=== PATIENT | female | born 1990 | race Caucasian/White ===

== ENCOUNTER 2021-08-27 21:06 | Observation (INO) | payer OTHER ==
[2021-08-27] MEDS ORDERED: Ondansetron PF 4 MG/2 ML Vial ONE (21:42)
[2021-08-27 22:13] LABS: Anion Gap 16 mmol/L (10-20); BUN (Urea Nitrogen) 12 mg/dL (7.0-18.7); Calc. Creatinine Clearance 0 mL/min (70-130); Calcium 9.1 mg/dL (7.8-10.44); Carbon Dioxide 25 mmol/L (22-29); Chloride 103 mmol/L (98-107); Glucose 112 mg/dL (70-105); Potassium 3.7 mmol/L (3.5-5.1); Sodium 140 mmol/L (136-145)
[2021-08-27] MEDS ORDERED: Ketorolac Tromethamine 30 MG/ML VIAL ONE (22:18)
[2021-08-27 22:34] LABS: #Basophils 0.1 10x3/uL (0.0-0.2); #Eosinphils 0.1 10x3/uL (0.0-0.5); #Monocytes 1.4 10x3/uL (0.0-1.1); #Neutrophils 15.4 10x3/uL (1.5-8.4); %Basophils 0.4 % (0.0-2.0); %Eosinophils 0.4 % (0.0-6.0); %Lymphocytes 6.8 % (18.0-47.0); %Monocytes 7.5 % (0.0-10.0); %Neutrophils 84.5 % (40.0-75.0); Hemoglobin 12.5 g/dL (12.0-15.5); Mean Corpuscular HGB CONC 30.9 g/dL (32.0-36.0); Mean Corpuscular Hemoglobin 26.2 pg (27.0-33.0); Mean Corpuscular Volume 84.7 fl (81.6-98.3); RBC Distribution Width 14.1 % (11.5-14.5); Red Blood Cell (RBC) Count 4.77 10x6/uL (3.90-5.03); White Blood Cell (WBC) Count 18.2 10x3/uL (3.5-10.5)
[2021-08-27 22:35] LABS: Platelet Count 127 10x3/uL (150-450)
[2021-08-27 22:41] LABS: Lipase Less than 4 U/L (8-78)
[2021-08-27] MEDS ORDERED: Labetalol HCl 100 MG/20 ML VIAL ONE (22:50)
[2021-08-28] MEDS ORDERED: Piperacillin/Tazobactam 4.5 GM VIAL ONE (00:03)
[2021-08-28 00:06] LABS: Bilirubin Neg (Negative); Blood, Urine Negative (Negative); Clarity Clear (Clear); Glucose, Urine (Dipstick) Normal (Negative); Ketone, Urine 15 mg/dL (Negative); Leukocyte Negative (Negative); Nitrite Negative (Negative); Protein, Urine (Dipstick) 30 mg/dl (Neg-Trace); Specific Gravity, Urine 1.015 (1.002-1.036); Urobilinogen Normal mg/dL (Less than 2)
[2021-08-28] MEDS ORDERED: Lactated Ringer's 1,000 ML IV SCH ×2 (01:00→11:30)
[2021-08-28] MEDS ORDERED: Ondansetron PF 4 MG/2 ML Vial IVP PRN ×2 (01:03→11:29)
[2021-08-28 01:09] LABS: Bacteria/HPF Rare-Few HPF (None Seen); RBC/HPF 0-3 HPF (0-3); WBC/HPF 0-3 HPF (0-3)
[2021-08-28 01:17] VITALS: BMI 33.5
[2021-08-28 01:28] LABS: SARS-CoV-2 NAA Rapid Test Not Detected (NotDetected)
[2021-08-28] MEDS: Ketorolac Tromethamine 30 MG/ML VIAL IVP PRN ×2 (03:24→09:31)
[2021-08-28] MEDS ORDERED: Piperacillin/Tazobactam 3.375 GM in Sodium Chloride 0.9% 100 ML IVPB SCH ×2 (04:00→12:00)
[2021-08-28] MEDS ORDERED: Promethazine HCl 25 MG/ML VIAL IM PRN (11:29)
[2021-08-28] MEDS ORDERED: hydrALAZINE 20 MG/ML VIAL SLOW IVP PRN (11:29)
[2021-08-28] MEDS ORDERED: Dextrose 5% in Water 1,000 ML IV PRN (11:29)
[2021-08-28] MEDS ORDERED: Morphine 2 MG/ML VIAL SLOW IVP PRN (11:29)
[2021-08-28] MEDS ORDERED: Dextrose 50% Abboject 50 ML SYRINGE SLOW IVP PRN (11:29)
[2021-08-28] MEDS ORDERED: PROPOFOL 20 ML ONE ×2 (12:07→13:14)
[2021-08-28] MEDS ORDERED: Fentanyl 100 MCG/2 ML VIAL ONE ×2 (12:07→13:15)
[2021-08-28] MEDS ORDERED: Dexamethasone 4 mg/ml Vial ONE (12:08)
[2021-08-28] MEDS ORDERED: Rocuronium Bromide 10 MG/ML (10ML VIAL) ONE (12:08)
[2021-08-28] MEDS ORDERED: Ketorolac Tromethamine 30 MG/ML VIAL ONE (12:08)
[2021-08-28] MEDS ORDERED: Glycopyrrolate 0.2 MG/ML 5 ML SYRINGE ONE (12:08)
[2021-08-28] MEDS ORDERED: Lidocaine 1% PF 5 ML VIAL ONE (12:08)
[2021-08-28] MEDS ORDERED: Ondansetron PF 4 MG/2 ML Vial ONE (12:08)
[2021-08-28] MEDS ORDERED: HYDROmorphone 0.5 MG/0.5 ML SYRINGE ONE (12:12)
[2021-08-28] MEDS ORDERED: Bupivacaine PF 0.5% 30 ML VIAL ONE (12:25)
[2021-08-28] MEDS ORDERED: EPINEPHrine 1 MG/ML AMP ONE (12:25)
[2021-08-28] MEDS ORDERED: Midazolam HCl 2 mg/2 ml Vial ONE (12:41)
[2021-08-28] MEDS ORDERED: Succinylcholine 200 MG/10 ml SYRINGE FS ONE (12:43)
[2021-08-28] MEDS ORDERED: diphenhydrAMINE 50 MG/ML VIAL ONE (12:57)
[2021-08-28 16:26] VITALS: BP 153/83; TEMP 98.9
[2021-08-28] MEDS ORDERED: traMADol HCl 50 MG TAB PO PRN (17:03)
[2021-08-28] MEDS ORDERED: Ibuprofen 800 MG TAB PO PRN (17:03)
[2021-08-28] MEDS ORDERED: Famotidine/PF 20 mg/2ml Vial SLOW IVP SCH (21:00)
[2021-08-28] MEDS ORDERED: Famotidine 20 MG TAB PO SCH (21:00)
== END 2021-08-28 18:40 | disposition home or self-care (01) ==
LOC: CSHERS 21:06 → CSHTELE 21:07
PROVIDERS: ADMIT Surgery; ATTEND Surgery
PROC: 0DTJ4ZZ Resection of Appendix, Percutaneous Endoscopic Approach (ICD-10-PCS; principal; 2021-08-27)
DX: K35.80 Unspecified acute appendicitis (principal)
CPT/HCPCS: 74177; 80048; 81003; 81015; 83605; 83690; 85025; 88304; 96365; 96375; 96376; G0378; J0171; J1100; J1170; J1200; J1885; J2250; J2405; J2543; J2704; J3010; J3490; J7120; J7620; S0020; U0002

== ENCOUNTER 2021-09-07 12:22 | Emergency (ER) | payer OTHER ==
[2021-09-07] MEDS ORDERED: Ondansetron PF 4 MG/2 ML Vial ONE (13:09)
[2021-09-07 13:12] LABS: #Basophils 0.1 10x3/uL (0.0-0.2); #Eosinphils 0.1 10x3/uL (0.0-0.5); #Monocytes 0.9 10x3/uL (0.0-1.1); #Neutrophils 8.5 10x3/uL (1.5-8.4); %Basophils 0.5 % (0.0-2.0); %Eosinophils 0.6 % (0.0-6.0); %Lymphocytes 11.6 % (18.0-47.0); %Neutrophils 78.9 % (40.0-75.0); Hemoglobin 11.8 g/dL (12.0-15.5); Mean Corpuscular Hemoglobin 26.2 pg (27.0-33.0); Mean Corpuscular Volume 87.1 fl (81.6-98.3); Platelet Count 144 10x3/uL (150-450); RBC Distribution Width 15.7 % (11.5-14.5); Red Blood Cell (RBC) Count 4.51 10x6/uL (3.90-5.03); White Blood Cell (WBC) Count 10.7 10x3/uL (3.5-10.5)
[2021-09-07 13:22] LABS: ALT (SGPT) 66 U/L (8-55); AST (SGOT) 47 U/L (5-34); Alkaline Phosphatase 96 U/L (40-110); Anion Gap 16 mmol/L (10-20); BUN (Urea Nitrogen) 9 mg/dL (7.0-18.7); Bilirubin, Total 0.4 mg/dL (0.2-1.2); Calc. Creatinine Clearance 0 mL/min (70-130); Calcium 8.8 mg/dL (7.8-10.44); Carbon Dioxide 23 mmol/L (22-29); Chloride 106 mmol/L (98-107); Glucose 95 mg/dL (70-105); Potassium 4.3 mmol/L (3.5-5.1); Sodium 141 mmol/L (136-145)
[2021-09-07 13:25] LABS: Bilirubin Neg (Negative); Blood, Urine Negative (Negative); Clarity Clear (Clear); Glucose, Urine (Dipstick) Normal (Negative); Ketone, Urine Negative (Negative); Leukocyte Negative (Negative); Nitrite Negative (Negative); Pregu Control Background? CLEAR/WHITE (CLR/WHITE); Pregu Control Bar Appear? YES (CONTROL BAR); Protein, Urine (Dipstick) 30 mg/dl (Neg-Trace); Urobilinogen Normal mg/dL (Less than 2)
[2021-09-07 13:26] LABS: Pregnancy Test - Urine (BHCG) Negative (Negative)
[2021-09-07 13:33] LABS: Bacteria/HPF None Seen HPF (None Seen); RBC/HPF None Seen HPF (0-3); Squamous Epithelial None Seen HPF (0-3); WBC/HPF None Seen HPF (0-3)
[2021-09-07] MEDS ORDERED: Ketorolac Tromethamine 30 MG/ML VIAL ONE (14:12)
[2021-09-07 15:23] LABS: Creatinine, Urine 52.89 mg/dL (47-110)
== END 2021-09-07 15:26 | disposition home or self-care (01) ==
LOC: CSHERS 12:22
DX: O90.89 Other complications of the puerperium, not elsewhere classified (principal); R10.31 Right lower quadrant pain; O16.5 Unspecified maternal hypertension, complicating the puerperium; O86.89 Other specified puerperal infections; D72.829 Elevated white blood cell count, unspecified
CPT/HCPCS: 74177; 80053; 81003; 81015; 81025; 82570; 84156; 85025; 96374; 96375; J1885; J2405